=== PATIENT | female | born 1980 | race Caucasian/White ===

== ENCOUNTER 2024-01-03 16:25 | Emergency (ER) | payer BC, SELFPAY ==
[2024-01-03 16:32] VITALS: BP 169/101
[2024-01-03 18:50] VITALS: BP 159/101
[2024-01-03] MEDS: ZOFRAN ODT (ORALLY DISINTEGRATING) 4 MG PO (19:21)
--- NOTE | 2024-01-03 19:24 | ED.GENMED ---
History of Present Illness
General
Chief Complaint: Medication Reaction
Source: patient
Exam Limitations: none
Time Seen by Provider: 01/03/24 18:59
Nursing documentation reviewed up to this point in time: agreed with
Travel History
Have you had any contact with someone who has COVID-19?: No
Do you have any symptoms of coronavirus? Fever > 100 degrees, chills, cough, shortness of breath, sore throat, loss of taste or smell, muscle aches, or headache?: No
History of Present Illness
History of Present Illness:
Patient presents to ED secondary to persistent nausea, vomiting, and diarrhea, on approximately 1 hour after taking Augmentin prescribed at urgent care center for possible left eyelid infection. Patient states that she woke up yesterday morning
with swelling along the medial aspect of left eyelid, as if she had blockage in her tear duct. Since then, pain is increased along with increased swelling along the left eyelid. Patient was seen at urgent care center earlier today and was
prescribed Augmentin for the first time. Denies fever or chills. Denies headache. Denies blurred vision. Denies dizziness.
Review of Systems
Review of Systems
Allergies reviewed?: Yes
All Other Systems: ROS reviewed and negative except as documented in HPI and ROS
Constitutional: Reports no symptoms; Denies fever
EENT: Reports no symptoms
ABD/GI: Denies nausea, vomiting or diarrhea
Musculoskeletal: Reports no symptoms
Skin: Reports other (Eyelid redness and swelling)
Neurological: Reports no symptoms
Phy Exam
Physical Exam
Physical Exam:
Physical Exam
General: mild distress, not acutely ill. afebrile
Head: nc/at. eomi. normal conjunctiva.
Neck: supple. no meningeal signs.
Abdomen: normal bowel sounds. not tender.
Neuro: alert and oriented. no focal neurological deficits
Skin: mild swelling/fullness noted along medial aspect of left eyelid with erythema
Psychiatric: well kept. interactive and cooperative
Extremities: no edema. no calf tenderness.
Course
Orders/Labs/Results
Orders:
Orders
01/03/24 19:19
Ondansetron Orally Disint [Zofran Odt (Orally Disintegrating)] 4 mg .ROUTE .STK-MED ONE
Ondansetron Orally Disint [Zofran Odt (Orally Disintegrating)] 4 mg PO NOW STA
Vital Signs
Initial and Last Documented VS:
Initial Vital Signs
Temp Pulse Resp BP Pulse Ox
97.9 F 109 26 169/101 98
01/03/24 16:32 01/03/24 16:32 01/03/24 16:32 01/03/24 16:32 01/03/24 16:32
Last Documented Vital Signs
Temp Pulse Resp BP Pulse Ox
97.9 F 92 14 159/101 98
01/03/24 16:32 01/03/24 18:50 01/03/24 18:50 01/03/24 18:50 01/03/24 18:50
MDM/Problems Addressed
MDM/Problems Addressed:
History and exam consistent with likely an acute reaction to Augmentin. Otherwise, patient is afebrile and nontoxic-appearing. Patient's presenting symptoms likely secondary to blocked ductal gland, with associated inflammatory changes. Doubt
acute cellulitis at this time. As such, patient will be advised to withhold antibiotics for next 24 hours and apply aggressively warm compress of the affected area. If there is no improvement in 24 hours, patient will be advised to take prescribed
Keflex instead of Augmentin.
*Critical Care Note
Total Time (30-74mins, 75-104mins- exclusive of procedures): Not Applicable
ED Attending Note
-
Portions of this chart may have been created with voice recognition software.� Occasional wrong word or��sound alike� substitutions may have occurred due to the inherent limitations of voice recognition software.
Discharge Plan
Departure
Patient Disposition: Home (Routine Discharge)
Date of Disposition: 01/03/24
Time of Disposition: 19:34
Patient with high blood pressure during this ER visit?: Yes
Condition: Good
Discharge Problem:
Allergic drug reaction
Instructions: Adverse Drug Reactions, Adult (DC)
Prescriptions:
New
cephalexin 500 mg capsule
500 mg PO Q8H Qty: 21 0RF
ondansetron 4 mg Tablet,Disintegrating
4 mg PO TIDPRN PRN (Reason: nausea/vomiting) Qty: 12 0RF
Referrals:
Tal Beard MD [Active] -
Shabbir Pedroza DO [Family Provider] -
Activity Restrictions/Additional Instructions:
As discussed, please follow-up with referred pelt shearer for reevaluation next week. Please continue to apply warm compress to affected area and withhold antibiotics for next 24 hours. If there is significant improvement in symptoms after only
application of warm compress, you do not have to take prescribed antibiotics. Your prescriptions have been sent electronically to [facility] pharmacy in [place].
Interventions
Interventions:
*Risk Screen - Suicide Last Done: 01/03/24 16:29
*General Assessment Last Done: 01/03/24 16:29
*Neglect/Abuse Screening Last Done: 01/03/24 16:29
ED- Fall Risk Assessment Last Done: 01/03/24 18:24
*ED COVID-19 Vaccine History Last Done: 01/03/24 18:24
*Nursing Disposition Last Done: 01/03/24 20:16
ED-Skin Assessment Last Done: 01/03/24 18:24
ED- Pulmonary Assessment Last Done: 01/03/24 18:24
ED-EENT Assessment Last Done: 01/03/24 18:24
Discharge Date and Time
Discharge Date/Time: 01/03/24 20:16
Print Language: BELARUSIAN
== END 2024-01-03 20:16 | disposition home or self-care (01) ==
LOC: EMR 16:25
PROVIDERS: EMERGENCY PHYSICIAN Emergency Medicine; FAMILY PHYSICIAN Family Medicine
DX: R22.0 Localized swelling, mass and lump, head (principal); T50.905A Adverse effect of unspecified drugs, medicaments and biological substances, initial encounter; R03.0 Elevated blood-pressure reading, without diagnosis of hypertension
CPT/HCPCS: 99283